=== PATIENT | male | born 1980 | race Asian ===

== ENCOUNTER 2020-04-25 11:34 | Emergency (ER) | payer SELFPAY ==
[~2020-04-25] VITALS: Ht 172.7 cm; Wt 64.5 kg
[2020-04-25] MEDS ORDERED: MECLIZINE HCL 12.5 MG TAB PO ONE (12:15)
[2020-04-25] MEDS ORDERED: MECLIZINE HCL 12.5 MG TAB ONE (12:38)
--- NOTE | 2020-04-25 13:56 | Emergency Department Note ---
History of Present Illnes History of Present Illness Chief Complaint: General Medicine Complaints History of Present Illness This is a 39 year old male Chief Complaint Comment Reports that a month ago he was in [place] and will be back in [place] in a month but he is from the [facility]. Pt has had dizziness like the room is spinning and he is off balance for 2 weeks with nausea from the dizziness that he has lost 4 pounds in 2 weeks and has had no energy and weak from his legs down. . Historian: Patient Arrival Mode: Car Past Medical/Family History Physician Review I have reviewed the patient's past medical and family history. Any updates have been documented here. Past Medical History Recent Fever: No Clinical Suspicion of Infectio: No New/Unexplained Change in Ment: No Past Medical History: None Past Surgical History: None Social History Smoking Cessation: Never Smoker Counseling Performed: No Alcohol Use: Occasional Any Illegal Drug Use: No TB Exposure/Symptoms: No Physically hurt or threatened: No Family History Family history of heart diseas: No Other Any Pre-Existing Lines (PICC,: No Is patient up to date on immun: Yes Last Flu: none Last Pneumovax: none Review of Systems Review of Systems Constitutional: Reports no symptoms EENTM: Reports no symptoms Cardiovascular: Reports no symptoms Respiratory: Reports no symptoms Gastrointestinal: Reports no symptoms Genitourinary: Reports no symptoms Musculoskeletal: Reports no symptoms Integumentary: Reports no symptoms Neurological: Reports as per HPI Psychological: Reports no symptoms Endocrine: Reports no symptoms Hematological/Lymphatic: Reports no symptoms Physical Exam Related Data Allergies: Coded Allergies: No Known Allergies (Unverified , 04/25/20) Triage Vital Signs Vital Signs Date Time Temp Pulse Resp B/P (MAP) Pulse Ox O2 Delivery O2 Flow Rate FiO2 04/25/20 11:47 99.3 84 16 129/90 100 Vital signs reviewed: Yes Physical Exam CONSTITUTIONAL Constitutional: Present well-developed, Present well-nourished HENT HENT: Present normocephalic, Present atraumatic, Present oropharynx clear/moist, Present nose normal HENT L/R: Present left ext ear normal, Present right ext ear normal EYES Eyes: Reports PERRL, Reports conjunctivae normal NECK Neck: Present ROM normal PULMONARY Pulmonary: Present effort normal, Present breath sounds normal CARDIOVASCULAR Cardiovascular: Present regular rhythm, Present heart sounds normal, Present capillary refill normal, Present normal rate GASTROINTESTINAL Abdominal: Present soft, Present nontender, Present bowel sounds normal GENITOURINARY Genitourinary: Present exam deferred SKIN Skin: Present warm, Present dry MUSCULOSKELETAL Musculoskeletal: Present ROM normal NEUROLOGICAL Neurological: Present alert, Present oriented x 3, Present no gross motor or sensory deficits PSYCHOLOGICAL Psychological: Present mood/affect normal, Present judgement normal Results Laboratory Lab results reviewed: Yes Assessment & Plan Medical Decision Making MDM dizziness vertigo Reassessment Reassessment time: 13:54 Reassessment better No approval to get head CT Assessment & Plan Final Impression: (1) Dizziness (2) Vertigo Depart Disposition: HOME, SELF-CARE Last Vital Signs Date Time Temp Pulse Resp B/P (MAP) Pulse Ox O2 Delivery O2 Flow Rate FiO2 04/25/20 11:47 99.3 84 16 129/90 100 Medications in the ED Meclizine HCl 25 mg ONCE ONCE PO Last administered on 04/25/20at 12:35; Admin Dose 25 MG; Start 04/25/20 at 12:15; Stop 04/25/20 at 12:16; Status DC Meclizine HCl 25 mg STK-MED ONCE .ROUTE ; Start 04/25/20 at 12:38; Stop 04/25/20 at 12:33; Status DC ALFREDO TERRAZAS MD Apr 25, 2020 13:56
--- NOTE | 2020-04-25 14:04 | NUR ---
No approval for CT from central staffing.
[2020-04-25 14:10] VITALS: BP 129/84
== END 2020-04-25 14:14 | disposition home or self-care (01) ==
LOC: FSED 11:34
DX: R42 Dizziness and giddiness (principal); R11.0 Nausea; R53.1 Weakness
CPT/HCPCS: 80048; 80076; 85025; 99283; J8597